=== PATIENT | male | born 1940 | race Caucasian/White ===

== ENCOUNTER → 2017-02-23 | Day surgery (SDC) | payer OTHER ==
[2017-01-05 07:41] VITALS: Ht 165.1 cm; Wt 75.0 kg
[~2017-02-23] VITALS: Ht 165.1 cm; Wt 75.0 kg
[~2017-02-23] MED LIST: ACET-1311 PO; ALBUAER2 INH; ASPI81TA28 PO; CARV6.252 PO; CETI10TA84 PO; CITA10TA8 PO; CRS/10 PO; CYCLOPENTOLATE HCL 1% OP SOLN PER DROP CHARGE OPL SCH; EPLE25TA3 PO; ESOM20CA PO; FLUT0.15 INTNAS; FLUT1INH INH; GABA-112 PO; GATIFLOXACIN OP SOLN PER DROP CHARGE OPL SCH; KETOROLAC 0.5% OP SOLN PER DROP CHARGE OPL SCH; LACTATED RINGER'S 1000ML 500 ML IV SCH; LNX125 PO; LORA-741 PO; NTRGSL/4 UT; PHENYLEPHRINE HCL 10% OP SOLN PER DROP CHARGE OPL SCH; PHENYLEPHRINE HCL 2.5% OP SOLN PER DROP CHARGE OPL SCH; POLYSOL4 OPB; PROPARACAINE 0.5% OP SOLN PER DROP CHARGE OPL SCH; SPRIN/30 INH; TAMS0.4C38 PO; TROPICAMIDE 1% OP SOLN PER DROP CHARGE OPL SCH; [UNRECOGNIZED DRUG - CODE] PO; [UNRECOGNIZED DRUG - REMARK] SCH
== END | disposition home or self-care (01) ==
LOC: EDSTATUS 12:30 → C.PAT 13:39
PROVIDERS: ATTEND Ophthalmology
DX: H26.9 Unspecified cataract (principal)